=== PATIENT | male | born 1955 | race Caucasian/White ===

== ENCOUNTER 2022-06-18 18:23 | Inpatient (IN) ==
[2022-06-18] MEDS ORDERED: 0.9 % Sodium Chloride 1,000 ML ONE (18:45)
[2022-06-18] MEDS ORDERED: 0.9 % Sodium Chloride 1,000 ML IVC ONE ×2 (18:47→20:06)
[2022-06-18] MEDS ORDERED: Iopamidol - 370 500 ML MLS IVP ONE ×2 (18:48→18:51)
[2022-06-18] MEDS ORDERED: Cefepime HCl 2,000 MG in 0.9 % Sodium Chloride 10 ML IVP ONE (18:50)
[2022-06-18] MEDS ORDERED: Vancomycin 1,250 MG/262.5 ML IV.SOLN IVPB ONE (18:50)
[2022-06-18 19:12] LABS: Basophils # 0.1 K/mcL (0.0-0.2); Basophils % 1.1 %; Hematocrit 31.6 % (37.5-50.1); Hemoglobin 10.4 g/dL (12.9-16.9); Immature Granulocytes % 0.5 % (0-4); Lymphocytes # 0.5 K/mcL (0.6-4.6); Lymphocytes % 7.4 %; Mean Corpuscular HGB Conc 32.9 g/dL (31.6-35.5); Mean Corpuscular Hemoglobin 32.6 pg (28.0-33.3); Mean Corpuscular Volume 99.1 fL (83.0-100.0); Mean Platelet Volume 9.4 fL (9.4-12.4); Monocytes % 14.9 %; Neutrophils # 4.9 K/mcL (1.6-8.9); Platelet Count 163 K/mcL (140-400); Red Blood Count 3.19 M/mcL (4.19-5.50); Red Cell Distribution Width 12.6 % (11.5-14.5); Segmented Neutrophils % 76.1 %; White Blood Count 6.5 K/mcL (4.3-11.1)
[2022-06-18 19:19] LABS: Prothrombin Time 11.6 Seconds (9.4-12.1)
[2022-06-18 19:21] LABS: Activated Partial Thrombo Time 32.7 Seconds (26.0-36.0)
[2022-06-18 19:34] LABS: Alanine Aminotransferase 25 Units/L (7-52); Albumin 4.2 g/dL (3.5-5.7); Albumin/Globulin Ratio 1.5 (1.1-2.2); Alkaline Phosphatase 65 Units/L (34-104); Aspartate Amino Transferase 22 Units/L (13-39); BUN/Creatinine Ratio 14 (6-26); Bilirubin,Direct 0.2 mg/dL (0.0-0.2); Bilirubin,Indirect 0.5 mg/dL (0.0-1.0); Bilirubin,Total 0.7 mg/dL (0.3-1.0); Blood Urea Nitrogen 58 mg/dL (8-23); Calcium 9.4 mg/dL (8.6-10.3); Carbon Dioxide 25 mEq/L (23-29); Chloride 103 mEq/L (98-107); Creatine Kinase 1530 Units/L (30-223); Ethanol < 10 mg/dL (Less than 10); Globulin 2.8 g/dL (2.4-3.5); Glucose 118 mg/dL (70-105); Osmolality,Calculated 303 (280-300); Phosphorous 4.1 mg/dL (2.7-4.5); Potassium 5.2 mEq/L (3.5-5.1); Sodium 138 mEq/L (136-145); Troponin I < 0.03 ng/mL (< 0.04)
[2022-06-18 19:47] LABS: Thyroid Stimulating Hormone 0.484 mcIU/mL (0.340-5.600)
[2022-06-18] MEDS ORDERED: Ondansetron ODT 4 MG TAB.RAPDIS SL PRN (21:44)
[2022-06-18] MEDS ORDERED: Naloxone 0.4 MG/ML INJ IVP PRN (21:44)
[2022-06-18 22:02] LABS: ABG Base Excess -6 mEq/L (-2 to 3); ABG HCO3 19 mEq/L (21-27); ABG Oxygen Saturation 99 % (95-98); ABG PCO2 30 mmHg (35-45); ABG PO2 144 mmHg (85-104); ABG TCO2 20 mEq/L (20-26)
[2022-06-18] MEDS ORDERED: 0.9 % Sodium Chloride 1,000 ML IVC SCH (22:15)
[2022-06-18 22:16] LABS: Bacteria,Urine Few per hpf (None-Few); Bilirubin,Urine Negative (Negative); Blood,Urine Moderate (Negative); Clarity,Urine Clear (Clear); Color,Urine Light-Yellow (Yellow); Glucose,Urine (UA) Normal (Normal); Ketones,Urine Negative (Negative); Leukocyte Esterase,Urine Trace (Negative); Mucus,Urine Few per lpf (None-Few); Nitrite,Urine Positive (Negative); PH,Urine 5.5 pH Units (5.0-8.0); Protein,Urine Trace mg/dL (Neg-Trace); Specific Gravity,Urine 1.026 (1.010-1.025); Urobilinogen,Urine Normal (Normal)
[2022-06-18] MEDS: Acetaminophen 325 MG TABLET PO PRN (23:07)
[2022-06-18] MEDS: Melatonin 3 MG TABLET PO PRN (23:07)
[2022-06-19 01:03] LABS: Adenovirus Not Detected (Not Detect); Bordetella Pertussis Not Detected (Not Detect); Chlamydophila pneumoniae Not Detected (Not Detect); Coronavirus 229E Not Detected (Not Detect); Coronavirus HKU1 Not Detected (Not Detect); Coronavirus NL63 Not Detected (Not Detect); Coronavirus OC43 Not Detected (Not Detect); Human Metapneumovirus Not Detected (Not Detect); Human Rhinovirus/Enterovirus Not Detected (Not Detect); Influenza A Subtype 2009 H1 Not Detected (Not Detect); Influenza B Not Detected (Not Detect); Mycoplasma pneumoniae Not Detected (Not Detect); Parainfluenza Virus 1 Not Detected (Not Detect); Parainfluenza Virus 2 Not Detected (Not Detect); Parainfluenza Virus 3 Not Detected (Not Detect); Parainfluenza Virus 4 Not Detected (Not Detect); Respiratory Syncytial Virus Not Detected (Not Detect); SARS-CoV-2 DETECTED (Not Detect)
[2022-06-19] MEDS ORDERED: *HR* LORazepam 1 MG TABLET PO PRN ×3 (02:35)
[2022-06-19 03:30] LABS: Hematocrit 26.3 % (37.5-50.1); Mean Corpuscular HGB Conc 32.7 g/dL (31.6-35.5); Mean Corpuscular Hemoglobin 32.7 pg (28.0-33.3); Mean Platelet Volume 9.9 fL (9.4-12.4); Platelet Count 139 K/mcL (140-400); Red Blood Count 2.63 M/mcL (4.19-5.50); Red Cell Distribution Width 12.9 % (11.5-14.5); White Blood Count 4.8 K/mcL (4.3-11.1)
[2022-06-19 03:31] LABS: Hemoglobin 8.6 g/dL (12.9-16.9)
[2022-06-19 03:39] LABS: Calcium 8.2 mg/dL (8.6-10.3); Potassium 4.5 mEq/L (3.5-5.1); Uric Acid 12.3 mg/dL (2.3-7.6)
[2022-06-19 03:51] LABS: Amphetamine Screen,Urine Negative ng/mL (Cutoff=1000); Barbiturate Screen,Urine Negative ng/mL (Cutoff=200); Benzodiazepines Screen,Urine Negative ng/mL (Cutoff=200); Cannabinoid Screen,Urine Negative ng/mL (Cutoff = 50); Cocaine Screen,Urine Negative ng/mL (Cutoff= 300); Opiate Screen,Urine Positive ng/mL (Cutoff=300); Phencyclidine Screen,Urine Negative ng/mL (Cutoff=25)
[2022-06-19] MEDS: Ringers Solution, Lactated 1,000 ML IVC SCH ×5 (04:23→21:58)
[2022-06-19] MEDS ORDERED: 0.9 % Sodium Chloride 500 ML IVC ONE (05:28)
[2022-06-19] MEDS: Cefepime HCl 1,000 MG in 0.9 % Sodium Chloride Mini Bag 100 ML IVPB SCH ×2 (05:43→18:17)
[2022-06-19] MEDS: dexAMETHasone 4 MG TABLET PO SCH (09:48)
[2022-06-19] MEDS: Thiamine (B-1) 100 MG TABLET PO SCH (09:48)
[2022-06-19] MEDS: Folic Acid 1 MG TABLET PO SCH (09:49)
[2022-06-20] MEDS: Ringers Solution, Lactated 1,000 ML IVC SCH ×3 (04:23→17:47)
[2022-06-20] MEDS: Cefepime HCl 1,000 MG in 0.9 % Sodium Chloride Mini Bag 100 ML IVPB SCH (04:27)
[2022-06-20] MEDS ORDERED: NON-FORMULARY MEDICATION 1 EACH EACH (Duloxetine Hcl [Cymbalta] 60 MG Capsule.Dr) PO SCH (09:00)
[2022-06-20] MEDS: *HR* HYDROcodone/Acet 5/325 mg TABLET PO PRN ×2 (09:37→17:46)
[2022-06-20] MEDS: dexAMETHasone 4 MG TABLET PO SCH (09:37)
[2022-06-20] MEDS: Thiamine (B-1) 100 MG TABLET PO SCH (09:37)
[2022-06-20] MEDS: Folic Acid 1 MG TABLET PO SCH (09:38)
[2022-06-20 11:04] LABS: Basophils % 0.2 %; Hematocrit 26.9 % (37.5-50.1); Hemoglobin 9.2 g/dL (12.9-16.9); Immature Granulocytes % 0.6 % (0-4); Lymphocytes # 0.9 K/mcL (0.6-4.6); Lymphocytes % 13.8 %; Mean Corpuscular HGB Conc 34.2 g/dL (31.6-35.5); Mean Corpuscular Volume 96.4 fL (83.0-100.0); Mean Platelet Volume 10.2 fL (9.4-12.4); Monocytes # 0.5 K/mcL (0.0-1.3); Platelet Count 135 K/mcL (140-400); Red Blood Count 2.79 M/mcL (4.19-5.50); Red Cell Distribution Width 12.1 % (11.5-14.5); Segmented Neutrophils % 77.4 %; White Blood Count 6.4 K/mcL (4.3-11.1)
[2022-06-20 11:21] LABS: Calcium 8.6 mg/dL (8.6-10.3)
[2022-06-20] MEDS: Cefepime HCl 2,000 MG in 0.9 % Sodium Chloride 10 ML IVP SCH (17:46)
[2022-06-20] MEDS: Acetaminophen 325 MG TABLET PO PRN (21:47)
[2022-06-20] MEDS: Melatonin 3 MG TABLET PO PRN (21:47)
[2022-06-21 02:02] LABS: Hematocrit 26.1 % (37.5-50.1); Immature Granulocytes % 0.5 % (0-4); Lymphocytes # 0.8 K/mcL (0.6-4.6); Lymphocytes % 12.6 %; Mean Corpuscular HGB Conc 34.5 g/dL (31.6-35.5); Mean Corpuscular Volume 95.6 fL (83.0-100.0); Mean Platelet Volume 10.4 fL (9.4-12.4); Monocytes # 0.4 K/mcL (0.0-1.3); Neutrophils # 5.1 K/mcL (1.6-8.9); Platelet Count 142 K/mcL (140-400); Red Blood Count 2.73 M/mcL (4.19-5.50); Red Cell Distribution Width 11.9 % (11.5-14.5); Segmented Neutrophils % 80.9 %; White Blood Count 6.3 K/mcL (4.3-11.1)
[2022-06-21 02:12] LABS: Calcium 8.8 mg/dL (8.6-10.3); Potassium 4.1 mEq/L (3.5-5.1)
[2022-06-21] MEDS: Ringers Solution, Lactated 1,000 ML IVC SCH ×2 (02:41→11:57)
[2022-06-21] MEDS: Cefepime HCl 2,000 MG in 0.9 % Sodium Chloride 10 ML IVP SCH (05:41)
[2022-06-21 08:09] VITALS: BP 136/82; PULSE 65; TEMP 98.9; O2SAT 93
[2022-06-21] MEDS: Thiamine (B-1) 100 MG TABLET PO SCH ×2 (08:52→08:53)
[2022-06-21] MEDS: Folic Acid 1 MG TABLET PO SCH (08:53)
[2022-06-21] MEDS: dexAMETHasone 4 MG TABLET PO SCH (08:53)
[2022-06-21] MEDS: *HR* HYDROcodone/Acet 5/325 mg TABLET PO PRN (08:54)
== END 2022-06-21 14:00 | disposition home or self-care (01) | DRG 871 ==
LOC: 3NENU 18:23 → EMEROOARM 18:23 → UNDODISIN 22:30 → 3NENU 22:30
PROVIDERS: ADMIT Internal Medicine; ATTEND Internal Medicine